=== PATIENT | male | born 1990 | race Two or more races ===

== ENCOUNTER 2025-07-22 09:50 | Emergency (ER) | payer OTHER, SELFPAY ==
[2025-07-22 10:25] VITALS: BP 137/86; PULSE 70; RESP 17; TEMP 36.7; O2SAT 97; BMI 27.9
--- NOTE | 2025-07-22 10:35 | XR_ITS ---
EXAMINATION: Lumbar spine 3 views TECHNIQUE: AP lateral, lateral lower lumbar spine 3 views Date and time: July 22 2025, 10:50 a.m. INDICATIONS: Lifting injury to lower back 1 week ago. FINDINGS: Adequate alignment lumbar vertebral bodies. No lumbar fracture. Mild disc narrowing L4-L5, L5-S1 IMPRESSION: No lumbar fracture
--- NOTE | 2025-07-22 10:35 | EDNOTE_ITS ---
<Statement entered by Savanna Snyder MD - 07/25/25 17:59> As co-signing physician, I was present and available for consult prn. I concur with the plan and care as documented by the midlevel provider. ED Back Injury Pain RME/HPI General Chief Complaint: Back Pain/Injury Stated Complaint: Injured at work last Sunday, lower back pain Time Seen by Provider: 07/22/25 09:55 Arrival date/time: 07/22/25 09:50 34-year-old male presents to the emergency department today stating that he had a work-related injury last Sunday and has been having lower back pain since then patient reports that he was lifting approximately 5 pounds and developed pain in his lower back Limitations: no limitations Related Data Previous Rx's ?Medication ?Instructions ?Recorded cyclobenzaprine 10 mg tablet 10 mg PO TID PRN muscle s pasm 10 07/22/25 days #30 tab-caps ibuprofen 800 mg tablet 800 mg PO TID PRN pain #30 t abs 07/22/25 Allergies Allergy/AdvReac Type Severity Reaction Status Date / Time No Known Drug Allergies Allergy Verified 07/22/25 09:56 Review of Systems Review of Systems Systems Reviewed: All systems reviewed, normal except as documented Constitutional Constitutional: Reports system reviewed and no additional complaints, except as documented, Denies fever(s) and Denies headache(s) Eyes Eyes: Reports system reviewed and no additional complaints, except as documented and Denies blurry vision ENT Ears, Nose, Mouth, and Throat: Reports system reviewed and no additional complaints, except as documented, Denies headache(s), Denies nasal congestion and Denies nasal discharge Cardiovascular Cardiovascular: Reports system reviewed and no additional complaints, except as documented, Denies chest pain and Denies dyspnea Respiratory Respiratory: Reports system reviewed and no additional complaints, except as documented, Denies chest congestion, Denies cough and Denies dyspnea Gastrointestinal Gastrointestinal: Reports system reviewed and no additional complaints, except as documented and Denies abdominal pain Musculoskeletal Musculoskeletal: Reports system reviewed and no additional complaints, except as documented and Reports back pain Integumentary/Breasts Skin/Breast: Reports system reviewed and no additional complaints, except as documented and Denies rash Neurologic Neurologic: Reports system reviewed and no additional complaints, except as documented, Reports as per HPI and Denies headache(s) Past Medical History Social History SMOKING STATUS: Never smoker ED Exam General Limitations: Present no limitations General appearance: Present alert and in no apparent distress Head Head exam: Present atraumatic, normocephalic and normal inspection Eye Eye exam: Present normal appearance, PERRL and EOMI; Absent conjunctival injection ENT ENT exam: Present normal exam, normal oropharynx and mucous membranes moist Neck Neck exam: Present normal inspection, full ROM and trachea midline Chest Chest inspection: Present normal inspection and symmetric chest wall rise Respiratory Respiratory exam: Present normal lung sounds bilaterally; Absent respiratory distress Cardiovascular Cardiovascular exam: Present regular rate, normal rhythm and normal heart sounds Abdominal Exam Abdominal exam: Present soft and normal bowel sounds; Absent distention, tenderness, guarding, rebound or rigidity Extremities Exam Extremities exam: Present normal inspection and full ROM Back Exam Back exam: Present normal inspection, full ROM, tenderness, muscle spasm and paraspinal tenderness; Absent CVA tenderness (R) or CVA tenderness (L) Neurological Exam Neurological exam: Present alert, oriented X3 and CN II-XII intact Psychiatric Psychiatric exam: Present normal affect and normal mood Skin Skin exam: Present warm, dry, intact and normal color Course Quality Measures none Orders Category Date Time Status XR lumbar spine 2-3V Stat Exams 07/22/25 10:35 Completed Vital Signs Vital signs: Vital Signs Temperature 98.1 F 07/22/25 10:25 Pulse Rate 70 07/22/25 10:25 Respiratory Rate 17 07/22/25 10:25 Blood Pressure 137/86 H 07/22/25 10:25 Pulse Oximetry (%) 97 07/22/25 10:25 Oxygen Delivery Method Room Air 07/22/25 10:25 O2 saturation 97% room air within normal limits Back Pain / Injury MDM Narrative MDM Narrative:: 34-year-old male presents to the emergency department today stating that he had a work-related injury last Sunday and has been having lower back pain since then patient reports that he was lifting approximately 5 pounds and developed pain in his lower back On exam patient well-appearing patient does not appear look toxic no acute distress patient is no tenderness patient reports no saddle anesthesia no loss of bowel or bladder X-ray lumbar spine obtained no acute emergent findings noted Symptoms appear to be consistent with muscle pain Patient discharged home in no distress to follow-up with Workmen's Compensation doctor in the next 24 to 48 hours and for any worsening symptoms to return to the ER immediately Patient data External records reviewed:: [facility] previous records Clinical information provided by:: patient Social determinants that could affect healthcare access:: none Patient has the following chronic illnesses:: None How is presenting disease/condition affected by chronic disease/condition?: no chronic disease Evaluation data The following diagnostics were reviewed and interpreted by me:: radiology exam(s) Lab and/or radiology exams considered but not ordered:: Radiology obtained Interpretation Summary: Reviewed by me Medications / Prescriptions Medications or Prescriptions considered but not ordered:: Given Medication administrations:: Given Consultations Consultation(s) initiated? (list below): No Diagnosis Differential diagnosis back pain/injury: lumbar radiculopathy and strain of lumbar region Most likely diagnosis given after review of the tests above:: Strain of lumbar spine Admission Indicated Admission indicated?: not indicated Admission Request Was there a request for admission?: No Disposition Plan Disposition Plan: Discharge Discharge Attestation Discharge Attestation: The patient and all family members were given an opportunity to ask questions and understood the discharge instructions. Discharge instructions specifically effects, indications for sooner follow up or return to the emergency department, and the expected course of current diagnosis. Patient condition: Stable Discharge Plan Plan Patient Disposition: HOME (Self Care) Discharge Disposition comment: Stable Prescriptions/Referrals Prescriptions/Med Rec: New cyclobenzaprine 10 mg tablet 10 mg PO TID PRN (Reason: muscle spasm) 10 Days Qty: 30 0RF ibuprofen 800 mg tablet 800 mg PO TID PRN (Reason: pain) Qty: 30 0RF Referrals: No Primary/Family,Physician [Primary Care Provider] - 07/23/25 Problem List Clinical Impression: Strain of lumbar region, Work related injury Patient/Caregiver Discharge Instructions Education Materials: Treating?Strains and Sprains Additional Instructions: Please follow up with your primary care doctor in the next 24-48hrs for any worsening symptoms return here immediately Print Language: [place] Stand Alone Forms: [facility]ia Award Info., Patient Portal Info Letter PA/INSTRUCTIONAL CONSULTANT Supervising Physician PA/DEMETRICE Supervising Physician: dr [email or web address]
== END 2025-07-22 13:23 | disposition home or self-care (01) ==
PROVIDERS: Emergency Provider Emergency Medicine
DX: S39.012A Strain of muscle, fascia and tendon of lower back, initial encounter (principal); X58.XXXA Exposure to other specified factors, initial encounter; Y99.0 Civilian activity done for income or pay
CPT/HCPCS: 72100; 99282